=== PATIENT | female | born 1960 | race Caucasian/White ===

== ENCOUNTER → 2024-01-27 06:22 | Outpatient (REF) | payer BC, SELFPAY ==
[2024-01-27 07:08] LABS: % Basophils 0.7 % (0-2); % Immature Granulocytes 0.4 % (0-0.5); % Lymphocytes 24.5 % (20.5-51.1); % Monocytes 8.2 % (1.7-9.3); % Neutrophils 64.2 % (42.2-75.2); Absolute Basophils 0.1 10^3/uL (0-0.2); Absolute Eosinophils 0.2 10^3/uL (0-0.7); Absolute Lymphocytes 2.1 10^3/uL (1.2-3.4); Absolute Monocytes 0.7 10^3/uL (0.1-0.6); Absolute Neutrophils 5.5 10^3/uL (1.4-6.5); Hematocrit 37.8 % (37.0-47.0); Hemoglobin 12.2 g/dL (12.0-16.0); Mean Corp Hgb Conc. 32.3 g/dL (33.0-37.0); Mean Corpuscular Hgb 27.5 pg (27.0-31.0); Mean Corpuscular Volume 85.3 fL (81.0-99.0); Mean Platelet Volume 9.7 fL (7.4-10.4); Nucleated Red Blood Cells % 0 %; Platelet Count 254 10^3/uL (130-400); Red Blood Cell Count 4.43 10^6/uL (4.20-5.40); Red Cell Dist. Width 14.5 % (11.5-14.5); White Blood Cell Count 8.5 10^3/uL (4.8-10.8)
[2024-01-27 07:39] LABS: ALT (SGPT) 21 U/L (0-35); AST (SGOT) 24 U/L (14-36); Albumin 4.6 g/dl (3.5-5.0); Alkaline Phosphatase 75 U/L (38-126); Blood Urea Nitrogen 23 mg/dl (7-17); Calcium 10.1 mg/dl (8.4-10.2); Carbon Dioxide 25 mmol/L (22-30); Chloride 103 mmol/L (98-107); Glucose 110 mg/dl (70-99); HDL Cholesterol 54 mg/dl; LDL Cholesterol, Calculated 84 mg/dl; Potassium 4.2 mmol/L (3.5-5.1); Sodium 139 mmol/L (135-145); Total Bilirubin 0.5 mg/dl (0.2-1.3); Total Cholesterol 180 mg/dl (50-199); Total Protein 7.3 g/dl (6.3-8.2); Triglyceride 210 mg/dl (10-149); Very Low Density Lipoprotein 42 mg/dl (0-30); eGFR > 60.00
== END ==
LOC: REG 06:22
PROVIDERS: ATTENDING PHYSICIAN Physician Assistant
DX: Z00.00 Encounter for general adult medical examination without abnormal findings (principal); E66.01 Morbid (severe) obesity due to excess calories; Z68.42 Body mass index [BMI] 45.0-49.9, adult; I10 Essential (primary) hypertension; E78.5 Hyperlipidemia, unspecified
CPT/HCPCS: 36415; 80053; 80061; 85025

== ENCOUNTER → 2024-02-19 15:02 | Outpatient (REF) | payer BC, SELFPAY | LOC: WDC 15:02 | PROVIDERS: ATTENDING PHYSICIAN Physician Assistant | DX: Z12.31 Encounter for screening mammogram for malignant neoplasm of breast (principal) | CPT/HCPCS: 77063; 77067 ==

== ENCOUNTER → 2024-10-26 14:36 | Outpatient (REF) | payer BC, SELFPAY | LOC: RAD 14:36 | PROVIDERS: ATTENDING PHYSICIAN Obstetrics & Gynecology; FAMILY PHYSICIAN Physician Assistant | DX: N95.0 Postmenopausal bleeding (principal) | CPT/HCPCS: 76830; 76856 ==

== ENCOUNTER 2024-12-08 06:10 | Day surgery (SDC) | payer BC, SELFPAY ==
[2024-11-26 09:18] LABS: % Basophils 0.6 % (0-2); % Eosinophils 1.7 % (0-6); % Immature Granulocytes 0.4 % (0-0.5); % Lymphocytes 24.1 % (20.5-51.1); % Monocytes 9.9 % (1.7-9.3); % Neutrophils 63.3 % (42.2-75.2); Absolute Basophils 0.1 10^3/uL (0-0.2); Absolute Eosinophils 0.1 10^3/uL (0-0.7); Absolute Monocytes 0.8 10^3/uL (0.1-0.6); Absolute Neutrophils 5.2 10^3/uL (1.4-6.5); Hematocrit 37.9 % (37.0-47.0); Hemoglobin 12.4 g/dL (12.0-16.0); Mean Corp Hgb Conc. 32.7 g/dL (33.0-37.0); Mean Corpuscular Hgb 28.1 pg (27.0-31.0); Mean Corpuscular Volume 85.9 fL (81.0-99.0); Mean Platelet Volume 10.1 fL (7.4-10.4); Nucleated Red Blood Cells % 0 %; Platelet Count 278 10^3/uL (130-400); Red Blood Cell Count 4.41 10^6/uL (4.20-5.40); Red Cell Dist. Width 14.6 % (11.5-14.5); White Blood Cell Count 8.2 10^3/uL (4.8-10.8)
[2024-11-26 10:30] LABS: Blood Urea Nitrogen 23 mg/dl (7-17); Calcium 9.7 mg/dl (8.4-10.2); Carbon Dioxide 24 mmol/L (22-30); Chloride 102 mmol/L (98-107); Glucose 115 mg/dl (70-99); Potassium 4.2 mmol/L (3.5-5.1); Sodium 140 mmol/L (135-145); eGFR > 60.00
[2024-11-26 14:00] VITALS: BMI 43.8
[2024-12-08] VITALS (7 sets, daily range): BP systolic 142–154; BP diastolic 66–80; BMI 43.8
[2024-12-08] MEDS: NORMOSOL-R/PLASMALYTE-A 1000 IV (09:15)
--- NOTE | 2024-12-08 17:59 | OR.RPT ---
Operative Report
Operative Report
Date of procedure: 12/08/2024
Preop diagnosis:
- Postmenopausal bleeding
- submucosal fibroid
Postop diagnosis
- Postmenopausal bleeding
- Endometrial polyp
Procedure
- Hysteroscopy, dilation and curettage
- Polypectomy
Surgeon: Cindy
Anesthesia: General
EBL 20cc
Complications: none
Findings
- Normal appearing external genitalia
- Cervix without lesions or masses. Small amount of blood present in vaginal vault
- Bimanual exam limited secondary to body habitus. Uterus normal size, anteverted
- Hysteroscopic evaluation large endometrial polyp extending into cervical canal. Once polyp removed, multiple polyploid lesions and proliferative endometrium present
Pathology: endometrial curettings, endometrial polyp
Indication:
Patient is a 64yo who presents for hysteroscopy D&C. She has had postmenopausal bleeding since September. Pelvic ultrasound showed uterus 8.0x3.4x5.0cm. The endometrium is thickened at 2.1cm with a 7mm hyperechoic component (possibly secondary
to 1.6x1.3x1.3cm hypoechoic submucosal fibroid with internal vascularity. Hysteroscopy D&C was recommended for endometrial sampling. Risks, benefits and alternatives to the procedure were discussed and all questions answered. Consents were signed.
Procedure:
Patient was taken to the operating room and placed under general anesthesia. She was placed in the dorsal lithotomy position with Iglesia type stirrups. She was prepped and draped in the normal sterile fashion. Bimanual exam revealed the
aforementioned findings. The bladder was drained with a straight catheter yielding 100cc of clear urine. A Villalba retractor was placed in the anterior portion of the vagina and a Villalba retractor in the posterior aspect of the vagina revealing good
visualization the cervix. The anterior lip of the cervix was grasped with a single tooth tenaculum. The cervix was sequentially dilated to accommodate the Myosure hysteroscope. The hysteroscope was advanced under direct visualization. The
hysteroscope was not able to be advanced passed the cervical canal secondary to large endometrial polyp. The polyp was resected using the Myosure resecting device. The hysteroscope was then advanced and evaluation revealed the aforementioned
findings. The hysteroscope was removed. A size 0 curette was introduced into the cervix. The uterus was curetted in a clockwise fashion until uterine cry was felt in all quadrants. Endometrial curettings were sent to pathology for evaluation. The
tenaculum was removed from the cervix and good hemostasis was noted. All instruments were removed from the vagina. The fluid deficit was 400mL.
The patient tolerated the procedure well. All sponge and instrument counts were correct x2. She was taken to PACU in stable condition.
== END 2024-12-08 12:43 | disposition home or self-care (01) ==
LOC: SDS 06:10
PROVIDERS: ATTENDING PHYSICIAN Student in an Organized Health Care Education/Training Program; FAMILY PHYSICIAN Physician Assistant
DX: C54.1 Malignant neoplasm of endometrium (principal); N84.0 Polyp of corpus uteri; N95.0 Postmenopausal bleeding; Z17.0 Estrogen receptor positive status [ER+]
CPT/HCPCS: 58558; 88305; 71046; 80048; 85025; 86850; 86900; 86901; 88341; 88342; 88360; 93005

== ENCOUNTER → 2024-12-23 06:53 | Outpatient (REF) | payer BC, SELFPAY | LOC: RAD 06:53 | PROVIDERS: ATTENDING PHYSICIAN Obstetrics & Gynecology Gynecologic Oncology; FAMILY PHYSICIAN Physician Assistant | DX: C54.1 Malignant neoplasm of endometrium (principal); N95.0 Postmenopausal bleeding; E66.01 Morbid (severe) obesity due to excess calories | CPT/HCPCS: 71260; 74177; Q9967 ==

== ENCOUNTER 2024-12-29 06:50 | Day surgery (SDC) | payer BC, SELFPAY ==
[2024-12-22 13:25] VITALS: BMI 43.5
--- NOTE | 2024-12-27 08:35 | W.CON.GYNONC ---
Consultation
-
Date/Time Consultation Requested: 12/27/2024
Performing Provider: Ricardo Willett
Chief Complaint
-
Endometrial ca
History of Present Illness
64�year�old��woman�presenting�with�recent�postmenopausal�bleeding�started�in�March�2025.�Ultrasound�of�pelvis�was performed��and�reveals�uterus�8�x�3.4�x�5�cm,�endometrium�is�thickened�at�2.1�cm,�right�and�left�ovaries�measure
2.7�and�2.4�cm�with�no�evidence�of�concerning�masses.�Patient�was�seen�and�evaluated�by�Dr.�Cindy,�she�recommended hysteroscopy�D&C�polypectomy�which�was�performed�on�May�.�Pathology�shows�fragments�of�grade�1�endometrial
endometrioid�adenocarcinoma,�p53�shows�a�wild�type�expression,�there�is�loss�of�MLH1�and�PMS2.�ER�and�IL�positive.�MLH1 promoter�methylation�has�been�requested Past�medical�history�hypertension�hypercholesterolemia�morbid�obesity
Past�surgical�history�significant�for�laparoscopic�cholecystectomy,�left�knee�meniscus�tear�repair Medications�include�atorvastatin�lisinopril�with�hydrochlorothiazide�daily
OB�history�2�prior�spontaneous�vaginal�delivery,�menopause�at�age�53�last�Pap�smear�2�years�ago�was�within�normal�limits�no�prior history�of�abnormal�Pap�smears
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
Medical History
Allergies
Allergies reflect when allergies were last updated in [facility].
No Known Allergies Allergy (Verified 12/22/24 12:59)
Physical Exam
Physical Exam
Pelvic�Examination: External�normal�labia,�urethra,�anus.� Vagina:�Normal�mucosa.� Cervix:�normal�multiparous�appearance,�no�discharge. Uterus:�normal�size. Adnexa:�No�pelvic�mass.� RVE:�no�masses�or�nodularity
General:�Well�developed,�well�nourished�patient.�In�no�acute�distress.
Neck:�No�thyromegaly.�No�cervical�lymphadenopathy.
Lungs:�Clear�to�auscultation.�Good�air�movement�bilaterally.
Cardiac:�Regular�rate.�Regular�rhythm.�No�murmurs�appreciated.
Right�Breast:�No�masses�or�dimpling.�No�nipple�discharge. Left�Breast:�No�masses�or�dimpling.�No�nipple�discharge. Abdomen:�Abdomen�is�soft.�Non�tender�to�palpation.�Non�distended.
Extremities:�No�edema. Hematologic/
Lymphatic:�No�palpable�lymphadenopathy.
Musculoskeletal:�Normal�range�of�motion.�Strength�and�Tone�are�normal.
Skin:Non�jaundiced.�No�petechia.�No�purpura.
Neurologic:�Speech�is�fluent.�Normal�gait�and�station.�Cranial�nerves�intact
Results
-
[facility]��
����������������������������[address] [place] [address]�[place]�[id number]���
��������������������������������������������[phone]��
��
Patient�Name:�HERI MARTINEZDA����������������������������������������:�1960�������
Unit�Number:�[id number]����������������������������������������Age/Sex:�64/F���������
Patient�Acct�#:�[id number]����������������������������������������Location:�[facility]���������
Order�Provider:�Patrick Gloria.����������������������������������������Exam�Service�Date:�12/23/24��
��
��
����������������������������������������������������
�������
�������
�������
��
��
��������������������������������������Diagnostic�Imaging�Report��
�����������������������������������������������Signed��
Order�#:[id number]��
��
Exams:��CT�Chest/abd/pel�W�Iv�Cont��
��
Contrast-enhanced�CT�of�the�chest,�abdomen,�and�pelvis�dated�12/23/2024:45�AM.��
��
Indication:�Endometrial�cancer.��
��
Comparison:�[facility]01/30/2012��
��
Technique:�After�the�injection�of�intravenous�nonionic�iodinated�contrast,�axial�CT�of�the�chest,�
abdomen,�and�pelvis�was�performed�from�the�lung�apices�to�the�inferior�osseous�pelvis.�2-D�reformats
were�obtained.�Automatic�exposure�control�radiation�dose�reduction�technology�was�utilized.��
��
Findings:��
��
Chest:�The�central�airways�are�patent.�There�are�no�suspicious�pulmonary�nodules.�No�areas�of�
airspace�disease.�No�pleural�effusion�or�pneumothorax.��
��
No�mediastinal,�hilar�or�axillary�lymphadenopathy.��
��
The�heart�is�nonenlarged.�No�evidence�of�thoracic�aortic�aneurysm.��
��
No�suspicious�osseous�lesions.�There�is�mild�levoconvex�curvature�of�the�thoracic�spine�with�
multilevel�mild�degenerative�changes.��
��
Abdomen/pelvis:��
LIVER:�Mildly�diffusely�hypoattenuating.��
GALLBLADDER:�Surgically�absent.��
BILE�DUCTS:�Within�normal�limits.��
PANCREAS:�Within�normal�limits.��
SPLEEN:�Within�normal�limits.��
ADRENALS:�No�discrete�nodule.��
KIDNEYS/URETERS:�No�hydronephrosis.�No�suspicious�renal�lesion.�There�is�an�8�mm�cyst�in�the�
superior�pole�left�kidney.��
��
BOWEL:�No�obstruction�or�wall�thickening.��
PERITONEUM:�No�ascites�or�free�air.��
REPRODUCTIVE:�There�is�mild�heterogeneity�of�the�endometrium.��
BLADDER:�Nondistended.��
��
VESSELS:�Non-aneurysmal�abdominal�aorta.�Mild�atherosclerotic�calcifications�of�the�abdominal�aorta.��
RETROPERITONEUM:�No�retroperitoneal�or�pelvic�lymphadenopathy.��
��
No�suspicious�osseous�lesions.�There�is�mild�degenerative�disc�disease�throughout�the�lumbar�spine.�
Mild�degenerative�changes�of�the�pubic�symphysis.��
��
Small�fat-containing�umbilical�hernia.��
��
��
IMPRESSION:��
��
1.�No�evidence�of�metastatic�disease�within�the�chest,�abdomen�or�pelvis.��
2.�Mild�heterogeneity�of�the�endometrium�which�may�be�related�to�the�reported�endometrial�
malignancy.��
3.�Mild�hepatic�steatosis.��
��
Electronically�signRALPH Villa,���12/23/2024�4:05�PM��
Impression / Plan
-
This�is�a�64�year�old�woman�with�new�diagnosis�of�grade�1�endometrial�adenocarcinoma.�I�spoke�to�her�and�her�daughter�about�risk
factors�for�development�of�endometrial�cancer�including�obesity�hypertension�which�is�present�here,�presentation�as�well�as management�and�treatment.�The�patient�was�counseled�about�management,�while�there�is�a�possibility�of�hyper�methylation�of
MLH1�she�needs�formal�germline�screening�to�ensure�she�does�not�have�[place]�syndrome. #1�labs�will�be�done�including�CMP�CBC�CA125�coagulation�studies
#2�baseline�CT�chest�abdomen�and�pelvis�shows no obvious metastasis
#3�I�am�planning�to�proceed�with�surgical�treatment�and�I�recommend�robotic�assisted�laparoscopic�total�hysterectomy�bilateral salpingo�oophorectomy,�sentinel�lymph�node�excision Surgery�will�be�scheduled�at�[facility]
We�reviewed�the�procedure�and�discussed�risk�including�infection�bleeding�injury�to�adjacent�organs�DVT�pulmonary�asthma cardiovascular�complications
#4�patient�will�return�back�to�the�office�2�to�3�weeks�after�surgery�for�review�of�pathology�and�discussion�of�any�adjuvant�treatment including�surveillance�and�observation�versus�radiation�or�chemotherapy.
We�reviewed�recovery�after�surgery�and�postoperative�instructions�briefly�in�the�office�today I�will�request�primary�care�physician�to�provide�a�medical�clearance�for�upcoming�surgical�procedure
[2024-12-29] VITALS (9 sets, daily range): BP systolic 114–141; BP diastolic 49–97; BMI 43.5
[2024-12-29] MEDS: NEURONTIN 300 MG PO (09:32)
[2024-12-29] MEDS: CELEBREX 200 MG PO (09:32)
[2024-12-29] MEDS: TYLENOL 1000 MG PO (09:32)
[2024-12-29] MEDS: HEPARIN 5000 UNITS SC (09:32)
[2024-12-29] MEDS: NORMOSOL-R/PLASMALYTE-A 1000 IV (09:33)
[2024-12-29] MEDS: DILAUDID 0.25 MG IV ×2 (13:27→13:49)
--- NOTE | 2024-12-29 17:31 | OR.RPT ---
Operative Report
Operative Report
Date of procedure: December 29, 2024
Primary Surgeon: Ricardo Willett
Assisting Surgeon: KARI Jonas Diane Muntzer, PA-C
Pre-op Diagnosis: Endometrial cancer
Post-op Diagnosis: Same
Procedure Performed: Robotic assisted total laparoscopic hysterectomy, bilateral salpingo-oophorectomy
Robotic assisted laparoscopic bilateral pelvic sentinel lymphadenectomy
Injection of cervix, with ICG dye, bilateral, for mapping and identification of bilateral pelvic sentinel lymph node
Anesthesia Type: General Endotracheal intubation, transversus abdominis plane block
Specimen / Cultures: Uterus and cervix with bilateral tubes and ovaries, pelvic washings, right and left external iliac sentinel lymph nodes
Estimated Blood Loss: 25 cc
Complications: None
Operative Findings: Upper abdomen including liver stomach right and left diaphragm right and left paracolic gutters and omentum are normal. Visualized portions of the small and large bowel including appendix are normal. Uterus and cervix are
normal size with no obvious evidence of abnormalities. Retroperitoneal spaces do not exhibit any enlarged or suspicious lymph node
Procedure in detail:
Upon arrival to the operating room, she was placed in supine position. General anesthesia was administered. She
was intubated without any difficulty. She was placed in lithotomy position using Yellofin stirrups and prepped on the abdomen,
perineum, and vagina. Arms were already wrapped and protected along the patient's sides after appropriate IV's were placed. Head and
neck, as well as shoulders, were properly padded and protected. After the patient was draped, time-out procedure was carried out.
She received 2 g of Ancef, as well as 500 mg of Flagyl and subcutaneous injection of heparin for DVT prophylaxis. Villafuerte
catheter was inserted under sterile conditions in the bladder.
Speculum exam of the vagina was performed, anterior lip of the cervix was grasped with single-tooth tenaculum. Cervix was injected with ICG dye superficially and deep with a total of 4 cc ICG dye at 3 and 9:00 bilaterally. Cervical canal was
dilated, we placed the uterine manipulator with 3.5 cm LAURA ring around the cervix and vaginal cuff occluder was insufflated.
Attention was turned into the abdomen. Veress needle was inserted just below left subcostal margin and
insufflation with CO2 gas was performed up to pressure of 15 mmHg. 8 mm Xi robotic ports were inserted at that location, as well as
midline in epigastrium, right and left upper quadrants, right and left lateral abdomen. TAP block was performed under direct
visualization with combination of lidocaine and decadron, both under subcostal region as well as lateral mid abdomen right and left sides.
Next, inspection of upper abdomen reveals liver, stomach, diaphragms, right and left paracolic gutters, as well as visualized
portion of the bowel and appendix within normal limits. The patient was placed in 28 degree Trendelenburg and robotic system was
docked. Pelvic washings were performed and collected and sent for cytology. We elevated the uterus and then sealed and divided both round ligaments, anteriorly and posteriorly, so the broad ligament were dissected open. Both infundibulopelvic
ligaments were isolated and a window was created between the ureter and them. These IP ligaments were sealed and divided. Tubes and ovaries were left attached to the uterus.
Paracervical and pararectal spaces were opened. Using firefly mode using near infrared lighting retracted lymphatic channel on right and left sides, there was a lymph node identified at the proximal aspect of right and left external iliac vessels
which had dye within it. These were removed and submitted to pathology bilaterally. There was no additional sentinel lymph nodes identified.
Bladder flap was sharply developed and advanced to the level of vagina. Bilateral uterine arteries were skeletonized. Uterine arteries followed by cardinal ligaments followed by uterosacral ligaments were serially sealed and divided.
Circumferential incision was made over the Laura ring until the specimen was detached. The specimen was removed through the vagina.
The vaginal apices were closed using 0 Vicryl suture ligature in a [id number] fashion. V-Loc suture was used to close the remainder of the vaginal cuff from right to left and back to the right side in two layers. We examined all pedicles, which
were hemostatic. We irrigated the pelvis copiously. Next, we undocked the robotic system, released the pneumoperitoneum, and removed all the ports. The skin incisions were closed with 4-0 Monocryl in a subcuticular fashion. Vagina was inspected, and
there were no lacerations. Villafuerte catheter was removed.
Patient was awakened, extubated, and returned back to recover room in stable, awake, and extubated condition.
Counts of laps, instruments, and needles were correct x 2. I was present and scrubbed for the entire procedure as dictated above.
Disposition: To PACU, extubated alert and awake
== END 2024-12-29 14:56 | disposition home or self-care (01) ==
LOC: SDS 06:50
PROVIDERS: ATTENDING PHYSICIAN Obstetrics & Gynecology Gynecologic Oncology; FAMILY PHYSICIAN Physician Assistant
DX: C54.1 Malignant neoplasm of endometrium (principal); N83.8 Other noninflammatory disorders of ovary, fallopian tube and broad ligament; N80.03 Adenomyosis of the uterus; D25.9 Leiomyoma of uterus, unspecified; N88.8 Other specified noninflammatory disorders of cervix uteri
CPT/HCPCS: 58571; 38570; 38900; 88307; 88309; 36415; 86850; 86900; 86901; 88112; 88342; 93005

== ENCOUNTER → 2025-02-26 06:22 | Outpatient (REF) | payer BC, SELFPAY ==
[2025-02-26 07:51] LABS: ALT (SGPT) 26 U/L (0-35); AST (SGOT) 21 U/L (14-36); Albumin 4.4 g/dl (3.5-5.0); Alkaline Phosphatase 68 U/L (38-126); Blood Urea Nitrogen 31 mg/dl (7-17); Calcium 10.1 mg/dl (8.4-10.2); Carbon Dioxide 30 mmol/L (22-30); Chloride 103 mmol/L (98-107); Glucose 110 mg/dl (70-99); HDL Cholesterol 48 mg/dl; LDL Cholesterol, Calculated 78 mg/dl; Potassium 4.3 mmol/L (3.5-5.1); Sodium 140 mmol/L (135-145); Total Protein 7.1 g/dl (6.3-8.2); Very Low Density Lipoprotein 37 mg/dl (0-30); eGFR > 60.00
[2025-02-26 09:24] LABS: Glycohemoglobin (HgbA1c) 6.0 % (4.0-5.6)
== END ==
LOC: REG 06:22
PROVIDERS: ATTENDING PHYSICIAN Physician Assistant
DX: E78.5 Hyperlipidemia, unspecified (principal); I10 Essential (primary) hypertension; R73.01 Impaired fasting glucose
CPT/HCPCS: 36415; 80053; 80061; 83036

== ENCOUNTER → 2025-05-19 14:20 | Outpatient (REF) | payer BC, SELFPAY | LOC: WDC 14:20 | PROVIDERS: ATTENDING PHYSICIAN Physician Assistant | DX: Z12.31 Encounter for screening mammogram for malignant neoplasm of breast (principal) | CPT/HCPCS: 77063; 77067 ==